=== PATIENT | female | born 1945 | race Caucasian/White ===

== ENCOUNTER 2020-09-22 13:08 | Emergency (ER) | payer OTHER, BC ==
[2020-09-22 13:18] VITALS: BP 146/80; PULSE 72; TEMP 98.2; BMI 20.5
[2020-09-22] MEDS ORDERED: DIPHTH,PERTUSS(ACELL),TET 0.5 ML DISP.SYRIN IM ONE ×2 (13:24→14:24)
== END 2020-09-22 15:33 | disposition home or self-care (01) ==
LOC: FER 13:08
PROC: 0HQ0XZZ Repair Scalp Skin, External Approach (ICD-10-PCS; principal; 2020-09-22)
PROC: 3E0234Z Introduction of Serum, Toxoid and Vaccine into Muscle, Percutaneous Approach (ICD-10-PCS; 2020-09-22)
DX: S01.81XA Laceration without foreign body of other part of head, initial encounter (principal); S02.31XA Fracture of orbital floor, right side, initial encounter for closed fracture; M25.531 Pain in right wrist
CPT/HCPCS: 70450-TC; 70486-TC; 72125-TC; 73110-TC-RT-FY; 73130-TC-RT-FY; 99285-25

== ENCOUNTER 2021-08-20 11:48 | Emergency (ER) | payer OTHER, BC ==
[2021-08-20 11:56] VITALS: BP 147/74; PULSE 85; TEMP 98.4
[2021-08-20] MEDS ORDERED: LIDOCAINE HCL 1%, 10 MG/ML (50 mL VIAL) INF ONE (11:56)
[2021-08-20] MEDS ORDERED: LIDOCAINE HCL 1%, 10 MG/ML (20ML VIAL) ONE (12:06)
== END 2021-08-20 13:01 | disposition home or self-care (01) ==
LOC: FER 11:48
PROC: 0HQKXZZ Repair Right Lower Leg Skin, External Approach (ICD-10-PCS; principal; 2021-08-20)
DX: S81.811A Laceration without foreign body, right lower leg, initial encounter (principal); W19.XXXA Unspecified fall, initial encounter
CPT/HCPCS: 93005; 99283-25

== ENCOUNTER 2021-08-30 10:13 | Emergency (ER) | payer OTHER, BC ==
[2021-08-30 10:24] VITALS: BP 143/61; PULSE 72; TEMP 98.9
== END 2021-08-30 13:03 | disposition home or self-care (01) ==
LOC: FER 10:13
DX: R07.89 Other chest pain (principal); S81.811A Laceration without foreign body, right lower leg, initial encounter; W01.0XXA Fall on same level from slipping, tripping and stumbling without subsequent striking against object, initial encounter; Z48.02 Encounter for removal of sutures
CPT/HCPCS: 71101-TC-RT-FY; 99283-25

== ENCOUNTER 2021-09-04 09:20 | Emergency (ER) | payer OTHER, BC ==
[2021-09-04 09:33] VITALS: BP 120/53; PULSE 75; TEMP 97.8; BMI 20.5
== END 2021-09-04 10:00 | disposition home or self-care (01) ==
LOC: FER 09:20
DX: S81.811A Laceration without foreign body, right lower leg, initial encounter (principal); W19.XXXA Unspecified fall, initial encounter; Z48.02 Encounter for removal of sutures
CPT/HCPCS: 99281-25